=== PATIENT | male | born 1985 | race African-American/Black ===

== ENCOUNTER 2023-11-25 20:19 | Emergency (ER) | payer BC, MEDICAID ==
[~2023-11-25] VITALS: Ht 188 cm; Wt 12.3 kg
[2023-11-25 20:47] VITALS: BP 144/84; PULSE 97; RESP 16; TEMP 99.2; O2SAT 98
[2023-11-26] MEDS ORDERED: CLIN-142 PO (02:20)
[2023-11-26] MEDS ORDERED: PERM60CR19 TP (02:20)
[2023-11-26] MEDS: FUROSEMIDE 20 MG TABLET PO ONE (02:35)
== END 2023-11-26 02:39 | disposition home or self-care (01) ==
LOC: EMS 20:19
DX: L03.115 Cellulitis of right lower limb (principal); B86 Scabies; F17.210 Nicotine dependence, cigarettes, uncomplicated; F15.90 Other stimulant use, unspecified, uncomplicated
CPT/HCPCS: 99283